=== PATIENT | female | born 1975 | race Caucasian/White ===

== ENCOUNTER 2024-02-17 20:58 | Emergency (ER) | payer MEDICAID, OTHER ==
[~2024-02-17] VITALS: Ht 152.4 cm; Wt 49.9 kg
[2024-02-17 23:01] VITALS: TEMP 98.5
[2024-02-17] MEDS ORDERED: ONDANSETRON 4 MG TAB.RAPDIS ONE (23:54)
[2024-02-17] MEDS: ONDANSETRON 4 MG TAB.RAPDIS SL ONE (23:54)
[2024-02-17 23:57] LABS: APPEARANCE,URINE CLEAR (CLEAR); BILIRUBIN,URINE NEGATIVE (NEGATIVE); BLOOD, URINE NEGATIVE Ery/uL (NEGATIVE); COLOR,URINE YELLOW (YELLOW); KETONES,URINE NEGATIVE (NEGATIVE); LEUKOCYTE ESTERASE ,URINE NEGATIVE (NEGATIVE); NITRITE, URINE NEGATIVE (NEGATIVE); PROTEIN,URINE NEGATIVE (NEGATIVE); UGLUCOSE NEGATIVE (NEGATIVE)
[2024-02-18 00:01] LABS: ADD URINE CULTURE NO; BACTERIA,URINE Rare /HPF (None Seen); RBC,URINE 0-2 /HPF (0-2); SQUAMOUS EPITHELIAL CELL,UR Few /HPF (None Seen); WBC,URINE 0-2 /HPF (0-3)
[2024-02-18] MEDS ORDERED: ONDA4TAB5 PO (00:50)
[2024-02-18 01:50] VITALS: BP 144/93; O2SAT 98
== END 2024-02-18 02:12 | disposition home or self-care (01) ==
LOC: ER 21:02
DX: S06.0X0A Concussion without loss of consciousness, initial encounter (principal); Z98.890 Other specified postprocedural states; W22.8XXA Striking against or struck by other objects, initial encounter; Y93.89 Activity, other specified; Y92.89 Other specified places as the place of occurrence of the external cause; Y99.8 Other external cause status
CPT/HCPCS: 99284; 70450; 81001; Q0162